=== PATIENT | female | born 1980 ===

== ENCOUNTER 2017-10-18 19:41 | Emergency (ER) | payer OTHER ==
[~2017-10-18 19:41] MED LIST: FLUT1DIS28 IH; LEVO1TBD8 PO
[2017-10-18] MEDS ORDERED: ALBU1.257 IH (19:52)
[2017-10-18] MEDS ORDERED: ALB18R INH (19:52)
--- NOTE | 2017-10-18 19:52 | ER Report ---
History and Physical Time Seen By MD: 19:51 Hx. of Stated Complaint: PT REPORTS SOME TROUBLE BREATHING, CHEST TIGHTNESS, COUGH HPI/ROS CHIEF COMPLAINT: Shortness of breath, asthma HISTORY OF PRESENT ILLNESS: 37-year-old female patient presents to emergency room with complaint of shortness of breath and asthma. Patient states that she' s been having problems for approximately 10 days now. She states that last Saturday she started having difficulty breathing. She states that she was started on prednisone at that time. She states that she is better for couple days and start have a cough. She states that that has persisted and now seems to be getting worse. She states that she is currently on a 10 mg daily dose of her prednisone, which she states she is not the end of her taper. She denies having any fevers, however she states she has been warm today. She denies any nausea, vomiting or diarrhea. Patient states she is not been using a nebulizer and she's run out of the medication. She states that she's just been using her inhaler which does not seem to be helping as much. REVIEW OF SYSTEMS: Respiratory: As noted above Cardiovascular: No chest pain, no palpitations. Gastrointestinal: No vomiting, no abdominal pain. Musculoskeletal: No back pain. Allergies: Coded Allergies: No Known Drug Allergies (Unverified , 07/30/17) Home Meds Active Scripts Loratadine (LORATADINE) 10 Mg Tablet, 10 MG PO DAILY, #30 TAB Prov:HELGA DEGROOT [facility] 10/18/17 Prednisone (PREDNISONE) 20 Mg Tablet, 40 MG PO QDAY, #15 TAB Take 2 tabs a day for 3 days, then 1.5 tabs for 3 days, 1 tab for 3 days and then 0.5 tabs for 3 days and then stop. Prov:HELGA DEGROOT [facility] 10/18/17 Ipratropium/Albuterol Sulfate (IPRAT-ALBUT 0.5-3(2.5) MG/3 ML) 3 Ml Ampul.neb, 3 ML IH Q4-6H Y for SHORTNESS OF BREATH, #30 VIAL Prov:HELGA DEGROOT [facility] 10/18/17 Reported Medications Prednisone 10 Mg Tab (PREDNISONE 10 MG TAB) 10 Mg Tablet, 10 MG PO QDAY, TAB 10/18/17 Albuterol Sulfate (VENTOLIN HFA) 18 Gm Inh, 1-2 PUFF INH 3-4XD, INH 10/18/17 Fluticasone/Salmeterol (ADVAIR 250-50 DISKUS) 1 Each Disk.w.dev, 1 EACH IH QHS 07/30/17 Levonorgestrel-Eth Estradiol (JOLESSA) 1 Each Tbdspk.3mo, 1 EACH PO QDAY 07/30/17 Discontinued Reported Medications Albuterol Sulfate (ALBUTEROL SULFATE) 1.25 Mg/3 Ml Vial.neb, 1.25 MG IH 10/18/17 Past Medical/Surgical History Patient has a past medical history of asthma. Patient denies any pertinent surgical history. Reviewed Nurses Notes: Yes Smoking Status: Never Smoker Constitutional Vital Sign - Last 24 Hours 10/18/17 10/18/17 10/18/17 10/18/17 19:41 19:45 19:45 19:56 Temp 98.3 Pulse ??? 80 84 Resp 18 B/P (MAP) 150/102 150/102 (118) Pulse Ox 98 O2 Delivery Room Air 10/18/17 10/18/17 10/18/17 10/18/17 20:00 20:07 20:09 20:11 Pulse 81 80 Resp 16 B/P (MAP) 131/88 (102) Pulse Ox 97 100 O2 Delivery Room Air 10/18/17 10/18/17 10/18/17 20:26 20:30 20:41 Pulse 82 81 Resp 12 20 B/P (MAP) 115/86 (96) Pulse Ox 96 95 Physical Exam General Appearance: The patient is alert, has no immediate need for airway protection and no current signs of toxicity. ENT: Tympanic membranes are pearly-espinoza, auditory canals are patent, mucus mucous membranes are moist. Respiratory: Chest is non tender, lungs are diminished to auscultation. Cardiac: regular rate and rhythm Gastrointestinal: Abdomen is soft and non tender, no masses, bowel sounds normal. Musculoskeletal: Neck: Neck is supple and non tender. Extremities have full range of motion and are non tender. Skin: No rashes or lesions. DIFFERENTIAL DIAGNOSIS: After history and physical exam differential diagnosis was considered for shortness of breath including but not limited to pulmonary infectious process, COPD, asthma, pulmonary embolus and congestive heart failure. Medical Decision Making Data Points Result Diagram: 10/18/17200710/18/172007 Laboratory Hematology Test 10/18/17 20:08 Red Blood Count 5.12 M/uL (4.17-5.56) Mean Corpuscular Volume 90.2 fL (80.0-96.0) Mean Corpuscular Hemoglobin 31.1 pg (26.0-33.0) Mean Corpuscular Hemoglobin Concent 34.5 g/dL (32.0-36.0) Red Cell Distribution Width 12.4 % (11.5-14.5) Mean Platelet Volume 8.8 fL (7.2-11.1) Neutrophils (%) (Auto) 53.1 % (39.4-72.5) Lymphocytes (%) (Auto) 38.3 % (17.6-49.6) Monocytes (%) (Auto) 7.0 % (4.1-12.4) Eosinophils (%) (Auto) 1.1 % (0.4-6.7) Basophils (%) (Auto) 0.5 % (0.3-1.4) Nucleated RBC Relative Count (auto) 0.0 /100WBC Neutrophils # (Auto) 3.1 K/uL (2.0-7.4) Lymphocytes # (Auto) 2.2 K/uL (1.3-3.6) Monocytes # (Auto) 0.4 K/uL (0.3-1.0) Eosinophils # (Auto) 0.1 K/uL (0.0-0.5) Basophils # (Auto) 0.0 K/uL (0.0-0.1) Nucleated RBC Absolute Count (auto) 0.00 K/uL Sodium Level 136 mmol/L (137-145) Potassium Level 4.4 mmol/L (3.5-5.0) Chloride Level 102 mmol/L (98-107) Carbon Dioxide Level 24 mmol/L (22-31) Blood Urea Nitrogen 17 mg/dl (7-18) Creatinine 0.90 mg/dl (0.52-1.04) Glomerular Filtration Rate Calc > 60.0 Random Glucose 100 mg/dl (75-110) Calcium Level 8.6 mg/dl (8.4-10.2) Total Bilirubin 0.4 mg/dl (0.2-1.3) Aspartate Amino Transf (AST/SGOT) 27 U/L (0-35) Alanine Aminotransferase (ALT/SGPT) 32 U/L (0-56) Alkaline Phosphatase 75 U/L (0-126) Total Protein 7.1 gm/dl (6.3-8.2) Albumin 3.7 g/dl (3.5-5.0) Influenza Virus Type A (PCR) Negative (NEGATIVE) Influenza Virus Type B (PCR) Negative (NEGATIVE) Respiratory Syncytial Virus (PCR) Negative (NEGATIVE) Chemistry Test 10/18/17 20:08 White Blood Count 5.8 k/uL (4.5-11.0) Red Blood Count 5.12 M/uL (4.17-5.56) Hemoglobin 15.9 g/dL (12.0-16.0) Hematocrit 46.2 % (34.0-47.0) Mean Corpuscular Volume 90.2 fL (80.0-96.0) Mean Corpuscular Hemoglobin 31.1 pg (26.0-33.0) Mean Corpuscular Hemoglobin Concent 34.5 g/dL (32.0-36.0) Red Cell Distribution Width 12.4 % (11.5-14.5) Platelet Count 278 K/uL (150-450) Mean Platelet Volume 8.8 fL (7.2-11.1) Neutrophils (%) (Auto) 53.1 % (39.4-72.5) Lymphocytes (%) (Auto) 38.3 % (17.6-49.6) Monocytes (%) (Auto) 7.0 % (4.1-12.4) Eosinophils (%) (Auto) 1.1 % (0.4-6.7) Basophils (%) (Auto) 0.5 % (0.3-1.4) Nucleated RBC Relative Count (auto) 0.0 /100WBC Neutrophils # (Auto) 3.1 K/uL (2.0-7.4) Lymphocytes # (Auto) 2.2 K/uL (1.3-3.6) Monocytes # (Auto) 0.4 K/uL (0.3-1.0) Eosinophils # (Auto) 0.1 K/uL (0.0-0.5) Basophils # (Auto) 0.0 K/uL (0.0-0.1) Nucleated RBC Absolute Count (auto) 0.00 K/uL Glomerular Filtration Rate Calc > 60.0 Calcium Level 8.6 mg/dl (8.4-10.2) Total Bilirubin 0.4 mg/dl (0.2-1.3) Aspartate Amino Transf (AST/SGOT) 27 U/L (0-35) Alanine Aminotransferase (ALT/SGPT) 32 U/L (0-56) Alkaline Phosphatase 75 U/L (0-126) Total Protein 7.1 gm/dl (6.3-8.2) Albumin 3.7 g/dl (3.5-5.0) Influenza Virus Type A (PCR) Negative (NEGATIVE) Influenza Virus Type B (PCR) Negative (NEGATIVE) Respiratory Syncytial Virus (PCR) Negative (NEGATIVE) EKG/Imaging Imaging 2 VIEWS CHEST INDICATION: Chest tightness. Asthma. COMPARISON: None available FINDINGS: Cardiomediastinal silhouette and pulmonary vessels within normal limits. There is no focal infiltrate or lobar consolidation. There is no pneumothorax or pleural effusion. No nodule. Upper abdomen is unremarkable. No acute bony abnormality. IMPRESSION: 1. No acute cardiopulmonary process. Report Dictated By: Domingo Madden at 10/18/2017 8:49 PM Report E-Signed By: Domingo Madden at 10/18/2017 8:50 PM ED Course/Re-evaluation ED Course Patient was admitted to exam room, history and physical were obtained. Differential diagnoses were considered. On examination patient's lungs were diminished. Patient received DuoNeb, a CBC, CMP, influenza and RSV screen were done. Reason for the RSV screen was because the patient is a employee at the [employer] has been exposed to RSV. The lab tests were unremarkable. Patient was negative for influenza and RSV. A chest x-ray was done which showed no acute cardiopulmonary processes. I discussed findings with the patient. We'll go ahead and treat her with prednisone, a taper that starting at 40 mg a day for 3 days then tapering down to 30 mg for 3 days, 20 mg for 3 days, 10 mg for 3 days and then stopping. We will also set her home with while so DuoNeb for nebulizer machine. She also given a prescription for loratadine to help with any allergy type problems. Patient is to follow-up Dr. Urban that she has an appointment scheduled for next month. She is to continue with her normal medications. I discussed this with the patient who verbalized understanding and agreement with plan. Decision to Disposition Date: Oct 18, 2017 Decision to Disposition Time: 20:59 Depart Departure Latest Vital Signs Vital Signs Date Time Temp Pulse Resp B/P (MAP) Pulse Ox O2 Delivery O2 Flow Rate FiO2 10/18/17 20:41 81 20 95 10/18/17 20:30 115/86 (96) 10/18/17 20:07 Room Air 10/18/17 19:45 98.3 Impression: Primary Impression: Asthma exacerbation Condition: Improved Disposition: HOME OR SELF-CARE Referrals: JOSEFINA COSTA MD (PCP) New Scripts Loratadine (LORATADINE) 10 Mg Tablet 10 MG PO DAILY, #30 TAB Prov: HELGA DEGROOT 10/18/17 Prednisone (PREDNISONE) 20 Mg Tablet 40 MG PO QDAY, #15 TAB Take 2 tabs a day for 3 days, then 1.5 tabs for 3 days, 1 tab for 3 days and then 0.5 tabs for 3 days and then stop. Prov: HELGA DEGROOT 10/18/17 Ipratropium/Albuterol Sulfate (IPRAT-ALBUT 0.5-3(2.5) MG/3 ML) 3 Ml Ampul.neb 3 ML IH Q4-6H Y for SHORTNESS OF BREATH, #30 VIAL Prov: HELGA DEGROOT 10/18/17 Patient Instructions: Asthma (ED) Additional Instructions: Increase fluid intake. Monitor for things that could be triggering the asthma. Follow up with Dr. Urban as previously scheduled. Return to the ER if condition worsens. Take medications as directed. Problem Qualifiers Primary Impression: Asthma exacerbation Asthma severity: moderate Asthma persistence: persistent Qualified Codes: J45.41 - Moderate persistent asthma with (acute) exacerbation HELGA DEGROOT Oct 18, 2017 19:52
[2017-10-18] MEDS ORDERED: PRED-1 PO (19:53)
[2017-10-18] MEDS ORDERED: ALBUTEROL/IPRATROPIUM 3 ML NEB NEB ONE ×2 (20:00→21:00)
[2017-10-18 20:19] LABS: PLATELET COUNT, AUTOMATED 278 K/uL (150-450)
--- NOTE | 2017-10-18 20:54 | RADIOLOGY IMAGING REPORT ---
FACILITY: [facility] PATIENT NAME: Abril Vang : 1980 MR: [id number] V: [id number] EXAM DATE: ORDERING PHYSICIAN: HELGA DEGROOT TECHNOLOGIST: Location: [facility] Patient: Abril Vang : 1980 Visit/Account:[id number] Date of Sevice: 10/18/2017 2 VIEWS CHEST INDICATION: Chest tightness. Asthma. COMPARISON: None available FINDINGS: Cardiomediastinal silhouette and pulmonary vessels within normal limits. There is no focal infiltrate or lobar consolidation. There is no pneumothorax or pleural effusion. No nodule. Upper abdomen is unremarkable. No acute bony abnormality. IMPRESSION: 1. No acute cardiopulmonary process. Report Dictated By: Domingo Madden at 10/18/2017 8:49 PM Report E-Signed By: Domingo Madden at 10/18/2017 8:50 PM WSN:[id number]
[2017-10-18] MEDS ORDERED: IPRA3AMP21 IH (20:57)
[2017-10-18] MEDS ORDERED: PRED20TA6 PO (20:57)
[2017-10-18] MEDS ORDERED: LORA-629 PO (20:59)
[2017-10-18] MEDS ORDERED: predniSONE 20 MG TAB PO ONE (21:00)
[2017-10-18 21:11] VITALS: BP 128/72
== END 2017-10-18 21:18 | disposition home or self-care (01) ==
LOC: ER 19:44
DX: J45.41 Moderate persistent asthma with (acute) exacerbation (principal)
CPT/HCPCS: 71046; 85025; 87502; 87798; 94640; 99284; J7512; J7620; 82040; 82247; 82310; 82374; 82435; 82565; 82947; 84075; 84132; 84155; 84295; 84450; 84460; 84520

== ENCOUNTER 2017-12-12 15:16 | Emergency (ER) | payer OTHER ==
[~2017-12-12 15:16] MED LIST changes: +ALB18R INH; +ALBU1.257 IH; +IPRA3AMP21 IH; +LORA-629 PO; +METR45CR10 TP; +PRED-1 PO; +PRED20TA6 PO
--- NOTE | 2017-12-12 15:44 | ER Report ---
History and Physical Time Seen By MD: 15:30 Hx. 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 BP WAS ELEVATED 170/110 BLURRED VISION (CORAL POWELL MD) HPI/ROS CHIEF COMPLAINT: Lightheaded dizzy HISTORY OF PRESENT ILLNESS: Otherwise of benign erythema comes emergency Department today with a complaint of feeling lightheaded came on all of a sudden mildly dizzy that she had some photophobia and some blurred vision but she saw the pupils are not dilating equally subsequent arrival here symptoms have relatively resolved she had no focal neurological deficits she said center is significant amount of stress at work and thinks he may be causing her symptoms but is not convinced no chest pain shortness of breath nausea vomiting diarrhea fever chills or additional complaints noted REVIEW OF SYSTEMS: Respiratory: No cough, no dyspnea. Cardiovascular: No chest pain, no palpitations. Gastrointestinal: No vomiting, no abdominal pain. Musculoskeletal: No back pain. Remainder of the 14 system rev: Yes (CORAL POWELL MD) Allergies: Coded Allergies: No Known Drug Allergies (Unverified , 12/12/17) Home Meds Active Scripts Metronidazole (METROCREAM) 45 Gm Cream..g., 1 MARGARET TP BID for 30 Days, #1 TUBE 2 Refills Prov:ALEXIS JENSEN 12/12/17 Fluticasone/Salmeterol (ADVAIR 250-50 DISKUS) 1 Each Disk.w.dev, 1 EACH IH BID, #1 DISK 11 Refills Prov:LISE GOODMAN JR, MD 11/13/17 Ipratropium/Albuterol Sulfate (IPRAT-ALBUT 0.5-3(2.5) MG/3 ML) 3 Ml Ampul.neb, 3 ML IH Q4-6H Y for SHORTNESS OF BREATH, #30 VIAL Prov:HELGA DEGROOT 10/18/17 Reported Medications Albuterol Sulfate (VENTOLIN HFA) 18 Gm Inh, 1-2 PUFF INH 3-4XD, INH 10/18/17 Levonorgestrel-Eth Estradiol (JOLESSA) 1 Each Tbdspk.3mo, 1 EACH PO QDAY 07/30/17 Discontinued Scripts Loratadine (LORATADINE) 10 Mg Tablet, 10 MG PO DAILY, #30 TAB Prov:HELGA DEGROOT VARNISH DIPPER 10/18/17 Reviewed Nurses Notes: Yes Old Medical Records Reviewed: Yes (CORAL POWELL MD) Smoking Status: Never Smoker Hx Substance Use Disorder: No Hx Alcohol Use: No (CORAL POWELL MD) Constitutional Vital Sign - Last 24 Hours 12/12/17 12/12/17 12/12/17 12/12/17 15:25 15:25 15:28 15:30 Temp 97.6 Pulse 82 Resp 20 B/P (MAP) 149/96 149/96 (113) 151/95 (113) 153/93 (113) Pulse Ox 96 O2 Delivery Room Air 12/12/17 12/12/17 12/12/17 12/12/17 15:46 16:00 16:30 17:00 Pulse 93 B/P (MAP) 120/88 (99) 107/70 (82) 124/77 (93) Pulse Ox 96 12/12/17 12/12/17 17:05 17:10 Pulse 86 79 Resp 21 21 Pulse Ox 95 95 (HORACIO COLUNGA DO) Physical Exam General Appearance: [The patient is alert, has no immediate need for airway protection and no current signs of toxicity.] [ ] Eyes: Pupils equal and round no injection. Respiratory: Chest is non tender, lungs are clear to auscultation. Cardiac: regular rate and rhythm [ ] Gastrointestinal: Abdomen is soft and non tender, no masses, bowel sounds normal. Musculoskeletal: Neck: Neck is supple and non tender. Extremities have full range of motion and are non tender. Skin: No rashes or lesions. [ ] DIFFERENTIAL DIAGNOSIS: After history and physical exam differential diagnosis was considered for vertigo anxiety cardiovascular stroke (CORAL POWELL MD) Medical Decision Making Data Points Result Diagram: 12/12/17 1543 12/12/17 1543 Laboratory Hematology Test 12/12/17 15:43 12/12/17 16:05 Red Blood Count 5.20 M/uL (4.17-5.56) Mean Corpuscular Volume 90.6 fL (80.0-96.0) Mean Corpuscular Hemoglobin 31.6 pg (26.0-33.0) Mean Corpuscular Hemoglobin Concent 34.8 g/dL (32.0-36.0) Red Cell Distribution Width 13.0 % (11.5-14.5) Mean Platelet Volume 9.5 fL (7.2-11.1) Neutrophils (%) (Auto) 51.8 % (39.4-72.5) Lymphocytes (%) (Auto) 37.4 % (17.6-49.6) Monocytes (%) (Auto) 9.5 % (4.1-12.4) Eosinophils (%) (Auto) 0.8 % (0.4-6.7) Basophils (%) (Auto) 0.5 % (0.3-1.4) Nucleated RBC Relative Count (auto) 0.0 /100WBC Neutrophils # (Auto) 3.0 K/uL (2.0-7.4) Lymphocytes # (Auto) 2.2 K/uL (1.3-3.6) Monocytes # (Auto) 0.5 K/uL (0.3-1.0) Eosinophils # (Auto) 0.0 K/uL (0.0-0.5) Basophils # (Auto) 0.0 K/uL (0.0-0.1) Nucleated RBC Absolute Count (auto) 0.00 K/uL D-Dimer Quantitative (PE/DVT) 0.62 ug/ml (0-0.50) Sodium Level 138 mmol/L (137-145) Potassium Level 3.7 mmol/L (3.5-5.0) Chloride Level 102 mmol/L (98-107) Carbon Dioxide Level 22 mmol/L (22-31) Blood Urea Nitrogen 14 mg/dl (7-18) Creatinine 0.80 mg/dl (0.52-1.04) Glomerular Filtration Rate Calc > 60.0 Random Glucose 91 mg/dl (75-110) Calcium Level 9.0 mg/dl (8.4-10.2) Total Bilirubin 0.6 mg/dl (0.2-1.3) Aspartate Amino Transf (AST/SGOT) 24 U/L (0-35) Alanine Aminotransferase (ALT/SGPT) 25 U/L (0-56) Alkaline Phosphatase 68 U/L (0-126) Troponin I < 0.012 ng/ml Total Protein 7.9 gm/dl (6.3-8.2) Albumin 4.4 g/dl (3.5-5.0) Human Chorionic Gonadotropin, Qual Negative (NEGATIVE) Urine Color Straw Urine Clarity Clear Urine pH 6.0 pH (4.8-9.5) Urine Specific [place] 1.005 Urine Protein Negative mg/dL (NEGATIVE) Urine Glucose (UA) Negative mg/dL (NEGATIVE) Urine Ketones Trace mg/dL (NEGATIVE) Urine Blood Negative (NEGATIVE) Urine Nitrite Negative (NEGATIVE) Urine Bilirubin Negative (NEGATIVE) Urine Urobilinogen Negative mg/dL (0.2-1.9) Urine Leukocyte Esterase Trace (NEGATIVE) Urine RBC 1 /HPF (0-2/HPF) Urine WBC 1 /HPF (0-5/HPF) Urine Squamous Epithelial Cells Many /LPF (</=FEW) Urine Renal Epithelial Cells Few /LPF (NONE-FEW) Urine Bacteria Few /HPF (NONE-FEW) Urine Mucus None /HPF (NONE-FEW) Chemistry Test 12/12/17 15:43 12/12/17 16:05 White Blood Count 5.8 k/uL (4.5-11.0) Red Blood Count 5.20 M/uL (4.17-5.56) Hemoglobin 16.4 g/dL (12.0-16.0) Hematocrit 47.1 % (34.0-47.0) Mean Corpuscular Volume 90.6 fL (80.0-96.0) Mean Corpuscular Hemoglobin 31.6 pg (26.0-33.0) Mean Corpuscular Hemoglobin Concent 34.8 g/dL (32.0-36.0) Red Cell Distribution Width 13.0 % (11.5-14.5) Platelet Count 238 K/uL (150-450) Mean Platelet Volume 9.5 fL (7.2-11.1) Neutrophils (%) (Auto) 51.8 % (39.4-72.5) Lymphocytes (%) (Auto) 37.4 % (17.6-49.6) Monocytes (%) (Auto) 9.5 % (4.1-12.4) Eosinophils (%) (Auto) 0.8 % (0.4-6.7) Basophils (%) (Auto) 0.5 % (0.3-1.4) Nucleated RBC Relative Count (auto) 0.0 /100WBC Neutrophils # (Auto) 3.0 K/uL (2.0-7.4) Lymphocytes # (Auto) 2.2 K/uL (1.3-3.6) Monocytes # (Auto) 0.5 K/uL (0.3-1.0) Eosinophils # (Auto) 0.0 K/uL (0.0-0.5) Basophils # (Auto) 0.0 K/uL (0.0-0.1) Nucleated RBC Absolute Count (auto) 0.00 K/uL D-Dimer Quantitative (PE/DVT) 0.62 ug/ml (0-0.50) Glomerular Filtration Rate Calc > 60.0 Calcium Level 9.0 mg/dl (8.4-10.2) Total Bilirubin 0.6 mg/dl (0.2-1.3) Aspartate Amino Transf (AST/SGOT) 24 U/L (0-35) Alanine Aminotransferase (ALT/SGPT) 25 U/L (0-56) Alkaline Phosphatase 68 U/L (0-126) Troponin I < 0.012 ng/ml Total Protein 7.9 gm/dl (6.3-8.2) Albumin 4.4 g/dl (3.5-5.0) Human Chorionic Gonadotropin, Qual Negative (NEGATIVE) Urine Color Straw Urine Clarity Clear Urine pH 6.0 pH (4.8-9.5) Urine Specific [place] 1.005 Urine Protein Negative mg/dL (NEGATIVE) Urine Glucose (UA) Negative mg/dL (NEGATIVE) Urine Ketones Trace mg/dL (NEGATIVE) Urine Blood Negative (NEGATIVE) Urine Nitrite Negative (NEGATIVE) Urine Bilirubin Negative (NEGATIVE) Urine Urobilinogen Negative mg/dL (0.2-1.9) Urine Leukocyte Esterase Trace (NEGATIVE) Urine RBC 1 /HPF (0-2/HPF) Urine WBC 1 /HPF (0-5/HPF) Urine Squamous Epithelial Cells Many /LPF (</=FEW) Urine Renal Epithelial Cells Few /LPF (NONE-FEW) Urine Bacteria Few /HPF (NONE-FEW) Urine Mucus None /HPF (NONE-FEW) Coagulation Test 12/12/17 15:43 D-Dimer Quantitative (PE/DVT) 0.62 ug/ml Urinalysis Test 12/12/17 16:05 Urine Color Straw Urine Clarity Clear Urine pH 6.0 pH (4.8-9.5) Urine Specific [place] 1.005 Urine Protein Negative mg/dL (NEGATIVE) Urine Glucose (UA) Negative mg/dL (NEGATIVE) Urine Ketones Trace mg/dL (NEGATIVE) Urine Blood Negative (NEGATIVE) Urine Nitrite Negative (NEGATIVE) Urine Bilirubin Negative (NEGATIVE) Urine Urobilinogen Negative mg/dL (0.2-1.9) Urine Leukocyte Esterase Trace (NEGATIVE) Urine RBC 1 /HPF (0-2/HPF) Urine WBC 1 /HPF (0-5/HPF) Urine Squamous Epithelial Cells Many /LPF (</=FEW) Urine Renal Epithelial Cells Few /LPF (NONE-FEW) Urine Bacteria Few /HPF (NONE-FEW) Urine Mucus None /HPF (NONE-FEW) (HORACIO COLUNGA DO) EKG/Imaging Imaging Results: CT scan of the CTA pulmonary angiogram was obtained. The results of the study are CT angiogram chest with contrast Indication: Lightheaded. Elevated d-dimer. Comparison: None available. Technique: Axial CT images are obtained through the chest after administration of 75 mL Isovue 370 IV contrast. Reformatted coronal and sagittal images were reviewed as well as coronal MIP images. One of the following dose optimization techniques was utilized in the performance of this exam: automated exposure control; adjustment of the mA and/ or kV according to the patient's size; or use of an iterative reconstruction technique. Specific details can be referenced in the facility's radiology CT exam operational policy. FINDINGS: No evidence of filling defect within the pulmonary vasculature to suggest pulmonary embolus. Heart is normal size without pericardial effusion. The aorta shows no aneurysm or dissection. Mediastinum and hilar regions show no enlarged lymph nodes or abnormal density. Lungs show no consolidations, pleural effusion, pneumothorax, nodule or focal interstitial opacities. Airways are clear. Bony structures show no acute fracture or discrete lesions. Chest wall shows no enlarged axillary lymph nodes or masses. Limited views of the upper abdomen are unremarkable. IMPRESSION: 1. No evidence of pulmonary embolus. 2. No acute cardiothoracic abnormality The study was read by the radiologist. I viewed the images myself on the PACS system. (HORACIO COLUNGA DO) ED Course/Re-evaluation ED Course Care was assumed at shift change from Dr. Powell. Diagnostic CT was pending for an elevated d-dimer, rule out acute PE.. Otherwise, patient is advised to follow-up with her primary care physician. She's been diagnosed with anxiety. Her CT scan was unremarkable for pulmonary embolus him. She was supplied a copy of the CAT scan report. She is advised to follow-up with her primary care physician. Decision to Disposition Date: Dec 12, 2017 Decision to Disposition Time: 17:15 (HORACIO COLUNGA DO) Depart Departure Latest Vital Signs Vital Signs Date Time Temp Pulse Resp B/P (MAP) Pulse Ox O2 Delivery O2 Flow Rate FiO2 12/12/17 17:10 79 21 95 12/12/17 17:00 124/77 (93) 12/12/17 15:25 97.6 Room Air (HORACIO COLUNGA DO) Impression: Primary Impression: Anxiety Condition: Improved Disposition: HOME OR SELF-CARE Referrals: JOSEFINA COSTA MD (PCP) Patient Instructions: Anxiety (ED) Additional Instructions: Follow-up with primary care if unimproved in 3-5 days CORAL POWELL MD Dec 12, 2017 15:44 HORACIO COLUNGA DO Dec 12, 2017 17:16
[2017-12-12 15:50] LABS: PLATELET COUNT, AUTOMATED 238 K/uL (150-450)
--- NOTE | 2017-12-12 15:56 | EKG ---
FACILITY: [facility] PATIENT NAME: SCHUYLER PONCE : [id number] MR: [id number] V: [id number] EXAM DATE: ORDERING PHYSICIAN: CORAL POWELL TECHNOLOGIST: BUTCH Test Reason : LIGHTHEADED Blood Pressure : / mmHG Vent. Rate : 076 BPM Atrial Rate : 076 BPM P-R Int : 134 ms QRS Dur : 076 ms QT Int : 370 ms P-R-T Axes : 059 058 034 degrees QTc Int : 416 ms Normal sinus rhythm Septal infarct , age undetermined Abnormal ECG No previous ECGs available Confirmed by ABY BECKETT ([id number]) on 12/12/2017 7:42:00 PM Referred By: SHERRY Confirmed By:ABY BECKETT
[2017-12-12] MEDS ORDERED: IOPAMIDOL 76% 75 ML INFUS BTL 75 ML ONE (16:35)
--- NOTE | 2017-12-12 16:42 | RADIOLOGY IMAGING REPORT ---
[place] [facility] [place] NAME: Abril Vang : 1980 MR: [id number] V: [id number] EXAM DATE: ORDERING PHYSICIAN: CORAL POWELL TECHNOLOGIST: Location: [facility] [place] Patient: Abril Vang : 1980 Visit/Account:[id number] Date of Sevice: 12/12/2017 2 VIEWS CHEST INDICATION: Chest pain COMPARISON: None available FINDINGS: Heart size within normal limits. There is no focal infiltrate or lobar consolidation. There is no pneumothorax or pleural effusion. IMPRESSION: 1. No acute cardiopulmonary process. Report Dictated By: Lc Mcgee MD at 12/12/2017 4:37 PM Report E-Signed By: Lc Mcgee MD at 12/12/2017 4:38 PM WSN:[id number]
--- NOTE | 2017-12-12 16:42 | RADIOLOGY IMAGING REPORT ---
FACILITY: [facility] PATIENT NAME: Abril Vang : 1980 MR: [id number] V: [id number] EXAM DATE: ORDERING PHYSICIAN: CORAL POWELL TECHNOLOGIST: Location: [facility] [place] Patient: Abril Vang : 1980 Visit/Account:[id number] Date of Sevice: 12/12/2017 EXAMINATION: Head CT without intravenous contrast HISTORY: Dizziness, lightheaded, started today. COMPARISON: None. TECHNIQUE: Contiguous axial images were obtained from the skull base to the vertex without intraven ous contrast. Sagittal and coronal reformatted images are also submitted. One of the following dose optimization techniques was utilized in the performance of this exam: Autom ated exposure control; adjustment of the mA and/or kV according to the patient's size; or use of an i terative reconstruction technique. Specific details can be referenced in the facility's radiology C T exam operational policy. FINDINGS: Brain and intracranial structures: Ventricles and sulci are normal in size. Rubin-white matter differ entiation is maintained. No midline shift, acute hemorrhage, acute infarct, or mass. Calvarium / scalp: Negative. Skull base / visualized face: Negative. Visualized sinuses / orbits: Negative. IMPRESSION: No acute intracranial abnormality. Report Dictated By: Ryan Martínez MD at 12/12/2017 4:33 PM Report E-Signed By: Ryan Martínez MD at 12/12/2017 4:39 PM WSN:[id number]
[2017-12-12 17:00] VITALS: BP 124/77
--- NOTE | 2017-12-12 17:05 | RADIOLOGY IMAGING REPORT ---
FACILITY: [facility] - [place] PATIENT NAME: Abril Vang : 1980 MR: [id number] V: [id number] EXAM DATE: ORDERING PHYSICIAN: CORAL POWELL TECHNOLOGIST: [facility] Patient: Abril Vang : 1980 Visit/Account:[id number] Date of Sevice: 12/12/2017 CT angiogram chest with contrast Indication: Lightheaded. Elevated d-dimer. Comparison: None available. Technique: Axial CT images are obtained through the chest after administration of 75 mL Isovue 370 IV contrast. Reformatted coronal and sagittal images were reviewed as well as coronal MIP images. One of the following dose optimization techniques was utilized in the performance of this exam: auto mated exposure control; adjustment of the mA and/or kV according to the patient's size; or use of an iterative reconstruction technique. Specific details can be referenced in the facility's radiology C T exam operational policy. FINDINGS: No evidence of filling defect within the pulmonary vasculature to suggest pulmonary embolus. Heart is normal size without pericardial effusion. The aorta shows no aneurysm or dissection. Mediast inum and hilar regions show no enlarged lymph nodes or abnormal density. Lungs show no consolidations, pleural effusion, pneumothorax, nodule or focal interstitial opacities. Airways are clear. Bony structures show no acute fracture or discrete lesions. Chest wall shows no enlarged axillary lym ph nodes or masses. Limited views of the upper abdomen are unremarkable. IMPRESSION: 1. No evidence of pulmonary embolus. 2. No acute cardiothoracic abnormality Report Dictated By: Domingo Madden at 12/12/2017 4:55 PM Report E-Signed By: Domingo Madden at 12/12/2017 5:01 PM WSN:[id number]
== END 2017-12-12 17:25 | disposition home or self-care (01) ==
LOC: ER 15:23
DX: F41.9 Anxiety disorder, unspecified (principal)
CPT/HCPCS: 70450; 71046; 71275; 81001; 84484; 84703; 85025; 85379; 93005; 99284; Q9967; 82040; 82247; 82310; 82374; 82435; 82565; 82947; 84075; 84132; 84155; 84295; 84450; 84460; 84520

== ENCOUNTER → 2018-10-21 | Outpatient (CLI) | payer OTHER ==
[~2018-10-21] MED LIST changes: +IPRA3AMP10 IH; -IPRA3AMP21 IH
--- NOTE | 2018-10-24 09:45 | RADIOLOGY IMAGING REPORT ---
FACILITY: [facility] - [place] PATIENT NAME: SCHUYLER PONCE : [id number] MR: [id number] V: [id number] EXAM DATE: [id number] ORDERING PHYSICIAN: JOSEFINA COSTA TECHNOLOGIST: Cheri Shaffer PROCEDURE:BILATERAL DIGITAL SCREENING MAMMOGRAM WITH CAD ASSISTED INTERPRETATION & 3D TOMOSYNTHESIS COMPARISON:None. INDICATIONS:BASELINE FINDINGS: The breasts are heterogeneously dense which can obscure small masses. There is no evidence of malignant appearing mass, malignant appearing calcification or other secondary sign of malignancy in either breast. DIAGNOSTIC CATEGORY 1--NEGATIVE. RECOMMENDATIONS: ROUTINE MAMMOGRAM AND CLINICAL EVALUATION. IMPRESSION: BIRADS 1: Negative. No significant abnormality is seen. Dictated by: Caitlyn Landa M.D. on 10/22/2018 at 17:12 Transcribed by: [email or web address] on 10/23/2018 at 13:50 Approved by: Caitlyn Landa M.D. on 10/24/2018 at 9:43 [facility]
== END ==
LOC: MAMO 00:30
PROVIDERS: ATTEND Obstetrics & Gynecology
DX: Z12.31 Encounter for screening mammogram for malignant neoplasm of breast (principal)
CPT/HCPCS: 77063; 77067